=== PATIENT | female | born 1935 | race Caucasian/White ===

== ENCOUNTER 2017-03-06 19:39 | Inpatient (IN) | payer OTHER, MEDICARE ==
[2017-03-06] MEDS ORDERED: NS 500 ML IV ONE (19:42)
[2017-03-06 19:55] LABS: % IMMATURE GRANULYOCYTES 0.4 % (0.0-1.1); ABSOLUTE IMMATURE GRANULOCYTES 0.03 10^3/uL (0.00-0.10); ADD DIFF? NO; ADD MORPH? NO; ADD SCAN? NO; ATYPICAL LYMPHOCYTE FLAG 0 (0-99); FRAGMENT RBC FLAG 0 (0-99); HEMATOCRIT 39.5 % (38.0-47.0); HEMOGLOBIN 13.7 g/dL (12.6-16.3); LEFT SHIFT FLG 0 (0-99); LIPEMIA HEMOLYSIS FLAG 90 (0-99); MEAN CELL HEMOGLOBIN 32.9 pg (27.9-34.1); MEAN CELL HEMOGLOBIN CONCENTR. 34.7 g/dL (32.4-36.7); MEAN CELL VOLUME 94.7 fL (81.5-99.8); MEAN PLATELET VOLUME 9.6 fL (8.7-11.7); PLATELET CLUMPS FLAG 0 (0-99); PLATELET COUNT 265 10^3/uL (150-400); RED BLOOD CELL COUNT 4.17 10^6/uL (4.18-5.33); RED CELL DISTRIBUTION WIDTH 13.8 % (11.5-15.2)
--- NOTE | 2017-03-06 19:56 | EDPHY ---
H & P HPI/ROS: HPI Mechanical fall, facial injury, skin tears. 81-year-old female by ambulance from the [facility] living [facility]. She was walking down the hallway, tripped and fell landing on her right side and the right side of her face. She was wearing glasses. She sustained a laceration just above the right lateral maxilla. She also sustained several skin tears to the bilateral upper extremities. She was perseverating on scene according to EMS but this is improved in route to the emergency department. Patient denies headache. She does complain of pain where her lacerations and skin tears are. She denies neck pain. She denies any loss of sensation or weakness in her extremities. She is a diabetic. She is on Pradaxa. ROS: Constitutional: No fever, no chills. No weakness. Eyes: No discharge. No changes in vision. ENT: No sore throat. No nasal congestion or rhinorrhea. Respiratory: No cough. No shortness of breath. Cardiac: No chest pain, no palpitations. Gastrointestinal: No abdominal pain, no vomiting, no diarrhea. Genitourinary: No hematuria. No dysuria or increased frequency with urination. Musculoskeletal: No back pain. No neck pain. No myalgias or arthralgias. Skin: No rashes. As above. Neurological: No headache. No focal weakness or altered sensation. Past medical history: Diabetes, heart disease, atrial fibrillation with pacemaker. Heart bypass surgery with 6 grafts, transient ischemic attacks, chronic transaminitis, hypertension, lumbar surgery, hyperparathyroidism, osteoporosis. As above. Social history: Nonsmoker. No alcohol. As above. Physical Exam: General Appearance: Alert, no distress. She is in a cervical collar. This patient is responding to questions appropriately and in full sentences. This patient appears well-hydrated and well-nourished. Head: Normocephalic atraumatic except for a skin tear with associated laceration right lateral maxilla. Face: Facial bones are stable on palpation. Eyes: Pupils equal and round and reactive to light, no pallor or injection. No lid erythema or edema. ENT, Mouth: Mucous membranes moist. Dentition is intact. No malocclusion of the jaw. No tongue lacerations or abrasions. Pharynx is clear. The bilateral nasal canals are clear. No septal hematoma. Respiratory: There are no retractions, lungs are clear to auscultation with good air movement bilaterally. Chest wall is stable to AP and lateral palpation. Cardiovascular: Regular rate and rhythm. No murmur. Gastrointestinal: Abdomen is soft and nontender, no masses, bowel sounds normal. Neurological: Motor sensory function is intact. Cranial nerves are normal. Cerebellar function intact. Skin: Warm and dry, no rashes. She has several skin tears on her bilateral upper extremities, dorsal aspect forearms and arms. Specific locations include the right lateral elbow, right lateral distal wrist and over the 1st radial aspect metacarpal phalangeal joint at the base of her thumb. Musculoskeletal: Neck is supple mild right lateral paraspinal tenderness at C3 through C6. The trachea is midline. No midline cervical, thoracic, lumbar or sacral tenderness on palpation. No flank tenderness on palpation. Extremities are symmetrical, full range of motion. All joints in the bilateral upper and bilateral lower extremities range without pain or impingement. No tenderness on palpation of the long bones in the bilateral upper and bilateral lower extremities. Psychiatric: No agitation. No depression. Database: EKG: Imaging: Chest x-ray AP portable; the cardiac mediastinal silhouette is unremarkable. No evidence of infiltrate or pneumothorax. The bony elements appear unremarkable. Age-related changes only. Left upper chest wall pacemaker. Leads appear intact. No acute cardiopulmonary disease process noted. Interpreted by me. CT head without contrast: Maxillary sinus anterior wall fracture without significant displacement. No blowout fracture. Otherwise negative study. Results were discussed with staff radiologist Dr. Flo Alexis. CT cervical spine without contrast: Age-related changes only. No evidence of fracture, subluxation, dislocation. Results were discussed with staff radiologist Dr. Flo Alexis. Procedures: Procedure: Laceration repair. Verbal consent was obtained from the patient. The 2.5 cm laceration with skin tear on the right mid to lateral brow ridge was anesthetized in the usual fashion. The wound was irrigated, draped and explored to its base with a gloved finger. There were no deep structures involved. No form was identified. The wound was repaired with 6, 6.0 Prolene sutures placed in interrupted fashion. The wound repair was tolerated well and there were no complications. The procedure was performed by myself. Emergency department course: IV placed per EMS. Patient in a C-collar. After an initial primary survey, patient sent for CT imaging of the head and cervical spine. Vital signs reviewed. 8:15 p.m., results of CT scan reviewed with radiologist. Cervical collar cleared clinically and radiographically. Skin tear is managed by technicians in nurse's with emergency department skin tear protocol. 8:45 p.m., discussed results of blood work and CT scans with patient. Discussed need for admission. Plan will be to admit to the hospitalist service for observation and have trauma consult. 9:15 p.m., discussed case with hospitalist, patient accepted for admission by Dr. Johnson. Spoke with Dr. Chand, trauma surgeon, will consult on the patient for any further trauma management. Differential Diagnosis: The differential diagnosis on this patient includes but is not limited to skin tears to bilateral upper extremities, facial laceration, mechanical fall. This represents a partial list of diagnoses considered. These considerations are based on history, physical exam, past history, reassessment and diagnostic testing. Smoking Status: Never smoked Constitutional: Initial Vital Signs Temperature (C) 36.9 C 03/06/17 19:42 Heart Rate 81 03/06/17 19:42 Respiratory Rate 14 03/06/17 19:42 Blood Pressure 176/84 H 03/06/17 19:42 O2 Sat (%) 96 03/06/17 19:42 O2 Delivery Mode Room Air Allergies/Adverse Reactions: Tetanus Vaccines and Toxoid [Tetanus] Allergy (Severe, Verified 03/06/17 19:42) Hives codeine [Codeine] Allergy (Mild, Verified 03/06/17 19:42) Vomiting Home Medications: Medication Instructions Recorded Aspirin [Aspirin 81mg (OTC)] 81 mg PO DAILY 04/16/13 Furosemide [Lasix 20 MG (RX)] 40 mg PO DAILY 04/16/13 Insulin Glargine [Lantus 100 3 units SC HS 04/16/13 UNITS/ML (RX)] Insulin Glargine [Lantus 100 22 units SC DAILY@08 04/16/13 UNITS/ML (RX)] Insulin Lispro [humALOG LISPRO 100 4 - 10 unit SC TIDMEAL 04/16/13 units/ml (RX)] Nitroglycerin [Nitrostat 0.4 mg 0.4 mg SL DAILY PRN 04/16/13 (RX)] Ranolazine [RANEXA 500mg (RX)] 500 mg PO BID 04/16/13 Dabigatran Etexilate Mesyl 150 mg PO BID 04/25/13 [Pradaxa 150 MG (RX)] Simvastatin [Zocor 10 mg (RX)] 10 mg PO HS 04/25/13 Diltiazem Cd [Cardizem ER 120 MG 240 mg PO DAILY@09 05/29/13 (RX)] Diltiazem Cd [Cardizem ER 120 MG 120 mg PO HS 03/06/17 (*)] Docusate Sodium [Colace 100 MG (*)] 100 mg PO BID PRN 03/06/17 Herbals/Supplements -Info Only 1 ea PO DAILY 03/06/17 Lisinopril [Zestril 10 mg (*)] 10 mg PO DAILY 03/06/17 Omeprazole [Prilosec 20 mg] 20 mg PO DAILY 03/06/17 Medical Decision Making - Diagnostics Imaging Results: Imaging Impressions Cervical Spine CT 03/06/17 19:43 Impression: Stable noncontrast CT of the cervical spine, without acute fracture identified. Results called to Dr. Melo at the time of the examination.. Head CT 03/06/17 19:43 Impression: Stable noncontrast CT of the brain without acute abnormality noted. Right maxillary sinus fracture with blood in the sinus. Results called to Dr. Melo at the time of the interpretation. Chest X-Ray 03/06/17 19:45 Impression: Negative trauma chest. - Data Points Laboratory Results: Laboratory Results 03/06/17 19:48 03/06/17 19:48 03/06/17 03/06/17 03/06/17 20:07 19:48 19:48 WBC 7.08 10^3/uL 10^3/uL (3.80-9.50) RBC 4.17 10^6/uL L 10^6/uL (4.18-5.33) Hgb 13.7 g/dL g/dL (12.6-16.3) Hct 39.5 % % (38.0-47.0) MCV 94.7 fL fL (81.5-99.8) MCH 32.9 pg pg (27.9-34.1) MCHC 34.7 g/dL g/dL (32.4-36.7) RDW 13.8 % % (11.5-15.2) Plt Count 265 10^3/uL 10^3/uL (150-400) MPV 9.6 fL fL (8.7-11.7) Neut % (Auto) 52.2 % % (39.3-74.2) Lymph % (Auto) 28.8 % % (15.0-45.0) [place] % (Auto) 15.8 % H % (4.5-13.0) Eos % (Auto) 2.0 % % (0.6-7.6) Baso % (Auto) 0.8 % % (0.3-1.7) Nucleat RBC Rel Count 0.0 % % (0.0-0.2) Absolute Neuts (auto) 3.69 10^3/uL 10^3/uL (1.70-6.50) Absolute Lymphs (auto) 2.04 10^3/uL 10^3/uL (1.00-3.00) Absolute Monos (auto) 1.12 10^3/uL H 10^3/uL (0.30-0.80) Absolute Eos (auto) 0.14 10^3/uL 10^3/uL (0.03-0.40) Absolute Basos (auto) 0.06 10^3/uL 10^3/uL (0.02-0.10) Absolute Nucleated RBC 0.00 10^3/uL 10^3/uL (0-0.01) Immature Gran % 0.4 % % (0.0-1.1) Immature Gran # 0.03 10^3/uL 10^3/uL (0.00-0.10) PT 16.4 SEC H SEC (12.0-15.0) INR 1.32 H (0.83-1.16) APTT 27.7 SEC SEC (23.0-38.0) Sodium 127 mEq/L L mEq/L (134-144) Potassium 4.6 mEq/L mEq/L (3.5-5.2) Chloride 92 mEq/L L mEq/L (97-110) Carbon Dioxide 21 mEq/l L mEq/l (22-31) Anion Gap 14 mEq/L mEq/L (8-16) BUN 17 mg/dL mg/dL (7-23) Creatinine 0.9 mg/dL mg/dL (0.6-1.0) Estimated GFR 60 Glucose 311 mg/dL H mg/dL (70-100) Calcium 9.5 mg/dL mg/dL (8.5-10.4) Ethyl Alcohol 202 mg/dL H mg/dL (0-10) Medications Given: Discontinued Medications Sodium Chloride (Ns) 500 mls @ 0 mls/hr IV ONCE ONE; Wide Open PRN Reason: Protocol Stop: 03/06/17 19:43 Last Admin: 03/06/17 20:25 Dose: 500 mls Departure - Departure Disposition: [facility] Inpatient Acute Clinical Impression: Mechanical fall, Multiple skin tears, Facial laceration, Alcohol intoxication, Facial fracture Referrals: Patient,NotPresent [Unknown] - As per Instructions
[2017-03-06 20:13] LABS: ANION GAP 14 mEq/L (8-16); CALCIUM 9.5 mg/dL (8.5-10.4); CARBON DIOXIDE 21 mEq/l (22-31); CHLORIDE 92 mEq/L (97-110); CREATININE 0.9 mg/dL (0.6-1.0); ETHANOL SERUM 202 mg/dL (0-10); GLOMERULAR FILTRATION RATE 60; GLUCOSE 311 mg/dL (70-100); POTASSIUM 4.6 mEq/L (3.5-5.2); SODIUM 127 mEq/L (134-144)
[2017-03-06 20:20] LABS: INR 1.32 (0.83-1.16); PROTIME(PATIENT) 16.4 SEC (12.0-15.0)
[2017-03-06 20:21] LABS: APTT 27.7 SEC (23.0-38.0)
[2017-03-06] MEDS ORDERED: DOCUSATE SODIUM 100 MG CAP PO PRN (21:40)
[2017-03-06] MEDS ORDERED: ONDANSETRON 4 MG/2 ML VIAL IVP PRN (21:40)
[2017-03-06] MEDS ORDERED: NITROGLYCERIN 0.4 MG BTL SL PRN (21:40)
--- NOTE | 2017-03-06 22:04 | GHP ---
[f rep st] HISTORY AND PHYSICAL DATE OF ADMISSION: 03/06/2017 CHIEF COMPLAINT: Fall. HISTORY OF PRESENT ILLNESS: This is an 81-year-old female with history of atrial fibrillation, coronary artery disease, TIAs, hypertension, who resided at the [facility] and was brought to the emergency department by ambulance after she sustained a fall. During the time of my exam, the patient was unable to recall what happened. The history was obtained via ER report. Apparently, the patient was walking down the hallway when she tripped and fell and landed on her right side and her face. The patient was not able to tell me why she fell. She was not sure if she lost consciousness. Currently she denied any pain in her arms or legs. She denied headache. She denied any chest pain or palpitations. During her emergency department workup, she was found to have a blood alcohol level of 202. She said that she does drink wine per night but denies drinking more than usual today. PAST MEDICAL HISTORY: 1. Insulin-dependent diabetes mellitus. 2. Coronary artery disease with 6 vessel bypass. 3. Paroxysmal atrial fibrillation. 4. GERD. 5. Mitral regurgitation. 6. Hypertension. 7. Evaluation in the ER in 03/2016. HOME MEDICATIONS: Reviewed. Refer to [facility] for details. ALLERGIES: Codeine and tetanus vaccine. SOCIAL HISTORY: The patient resides at the [facility]. She drinks wine daily. She denies any illicit drug use. FAMILY HISTORY: Reviewed and noncontributory. REVIEW OF SYSTEMS: Comprehensive 10-point review of systems was done and was negative, except for as mentioned in the HPI. PHYSICAL EXAM: VITAL SIGNS: Blood pressure 176/84, pulse of 81, respiratory rate 14, O2 saturation 96% on room air. Temperature afebrile. GENERAL: In no acute distress. HEAD: Normocephalic. There is ecchymosis over the right eye. NECK: Supple. No lymphadenopathy. CARDIOVASCULAR: S1, S2. No JVD. No lower extremity edema. PULMONARY: Lungs are clear. No wheezes, rales, or rhonchi. ABDOMEN: Soft, nontender, and nondistended. No guarding or rebound tenderness. Normoactive bowel sounds. EXTREMITIES: No clubbing or cyanosis. NEURO: Cranial nerves 2-12 grossly intact. No focal motor or sensory deficits. SKIN: Clear. There are no rashes. Once again, there is bruising and abrasions over the face. DIAGNOSTICS: WBC 7, hemoglobin 13.7, hematocrit 39.5, platelets 265. INR 1.32 ; sodium 127, potassium 4.6, chloride 92, BUN 17, creatinine 0.9, glucose 311, ethyl alcohol 202. Chest x-ray: Negative for pneumonia. Head CT stable. Noncontrast CT of the brain, right maxillary sinus fracture. CT of the cervical spine was stable without an acute fracture. ASSESSMENT: This is an 81-year-old female, who reportedly fell at the [facility] , found to have: 1. Acute alcohol intoxication. 2. Right maxillary sinus fracture likely non operative. 3. History of insulin-dependent diabetes with hyperglycemia. 4. History of atrial fibrillation on Pradaxa. PLAN: 1. Place on observation. 2. Trauma Surgery consult. 3. Monitor for signs of bleeding. 4. Monitor blood sugars and treat with correctional insulin as indicated. 5. Send urine sodium and fluid restrict for now after giving 1 L normal saline. 6. We will hold the patient's home dose of Xarelto, given her recent trauma. Reconsider restarting blood thinners in the morning. 7. The patient requests to be full code status. /[id number]/MODL and [id number], 03/06/172141 [facility]
[2017-03-07] MEDS: ACETAMINOPHEN 325 MG TAB PO PRN ×4 (01:29→20:56)
[2017-03-07 05:08] LABS: % IMMATURE GRANULYOCYTES 0.5 % (0.0-1.1); ABSOLUTE IMMATURE GRANULOCYTES 0.04 10^3/uL (0.00-0.10); ADD DIFF? NO; ADD MORPH? NO; ADD SCAN? NO; ATYPICAL LYMPHOCYTE FLAG 0 (0-99); FRAGMENT RBC FLAG 0 (0-99); HEMATOCRIT 36.1 % (38.0-47.0); HEMOGLOBIN 12.3 g/dL (12.6-16.3); LEFT SHIFT FLG 0 (0-99); LIPEMIA HEMOLYSIS FLAG 90 (0-99); MEAN CELL HEMOGLOBIN 32.1 pg (27.9-34.1); MEAN CELL HEMOGLOBIN CONCENTR. 34.1 g/dL (32.4-36.7); MEAN CELL VOLUME 94.3 fL (81.5-99.8); MEAN PLATELET VOLUME 9.7 fL (8.7-11.7); PLATELET CLUMPS FLAG 0 (0-99); PLATELET COUNT 252 10^3/uL (150-400); RED BLOOD CELL COUNT 3.83 10^6/uL (4.18-5.33); RED CELL DISTRIBUTION WIDTH 13.9 % (11.5-15.2)
[2017-03-07 05:12] LABS: ANION GAP 8 mEq/L (8-16); CALCIUM 9.4 mg/dL (8.5-10.4); CARBON DIOXIDE 22 mEq/l (22-31); CHLORIDE 102 mEq/L (97-110); CREATININE 0.8 mg/dL (0.6-1.0); GLOMERULAR FILTRATION RATE > 60; GLUCOSE 246 mg/dL (70-100); POTASSIUM 4.5 mEq/L (3.5-5.2); SODIUM 132 mEq/L (134-144)
--- NOTE | 2017-03-07 07:16 | GCON ---
[f rep st] CONSULTATION This is an 81-year-old woman who presents to the hospital after a fall. The patient has a history o f atrial fibrillation, diabetes, coronary artery disease, GERD, mitral regurgitation, and hypertensi on. She was walking down the [place] after dinner. She fell on her face. She believes she tripped an d does not recall whether she lost consciousness. Patient admits to drinking 2 glasses of wine at d inner. Fall happened after dinner. The patient had a blood alcohol level of 202 on arrival to the emergency room. PAST MEDICAL HISTORY: Diabetes type 2, coronary artery disease, AFib, GERD, mitral regurgitation, h ypertension. PAST SURGICAL HISTORY: Includes 3 vessel bypass, abdominal surgery she does not recall. HOME MEDICATIONS: Reviewed, include Pradaxa. Refer to the medical record for full details. ALLERGIES: Include codeine and tetanus vaccine. SOCIAL HISTORY: Patient does drink daily. Denies smoking. FAMILY HISTORY: Noncontributory. REVIEW OF SYSTEMS: 10-point review of system was done, negative except for the pain that she has fr om landing on her face and abrasions she has on both arms. PHYSICAL EXAMINATION: VITAL SIGNS: Blood pressure 181/72, heart rate of 78, respiratory rate of 19 , saturating 99% on room air, temperature of 36.5. GENERAL: She is alert and oriented. HEENT: Carol chan has right facial ecchymoses with bruise under her right eye and no circumferential swelling, tende rness to maxillary sinus consistent with CT scan. Her bite is intact. HEART: She has irregular ir regular heart tones. LUNGS: Clear bilaterally. ABDOMEN: Soft, nontender to palpation. MUSCULOSK ELETAL: Moving all extremities. Good femoral and dorsalis pedis pulses bilaterally as well as radi al pulses bilaterally. 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 She has no CVA or back tenderne ss. SKIN: She has no rashes, but she has multiple abrasions. Her right eye brow has a laceration which has been sutured. She has an abrasion above that as well as bilateral upper extremities which are dressed. LABORATORY STUDIES: White count of 7.0, hemoglobin of 13.7, hematocrit of 39.5, platelet count of 2 65. PT is 16.4 with an INR of 1.32. Chemistry: Sodium 127, potassium 4.6, bicarb 21, chloride 92, BUN 17, creatinine 0.9, glucose is 311, calcium is 9.5. Normal chest x-ray, personally reviewed, discussed with Dr. Weiner. Head CT shows no intracrani al injury, no acute abnormality except the right maxillary sinus fracture with blood in the sinus. CT scan is negative except for degenerative changes. No acute fracture is identified. IMPRESSION: Fall from a standing height, trip and fall. The patient was drinking alcohol, does not need detox at this point. She remains on Pradaxa. I would hold this for the interim while she sti ll has ongoing bleeding. After 48 hours, she may resume this without a bolus. Diabetes control, ov erall risk management strategies for the patient will be discussed. No need for Trauma Surgery to je dorsey at this time. /[id number]/MODL
[2017-03-07] MEDS: RANOLAZINE 500 MG TAB.ER PO SCH ×2 (08:19→20:57)
[2017-03-07] MEDS: INSULIN GLARGINE 100 UNITS/ML SYRINGE SC SCH ×3 (08:21→20:58)
[2017-03-07] MEDS: DILTIAZEM CD 120 MG CAP PO SCH ×2 (08:21→20:57)
[2017-03-07] MEDS: PANTOPRAZOLE SODIUM 40 MG TAB PO SCH (08:21)
[2017-03-07] MEDS: ASPIRIN 81 MG CHEWABLE TAB PO SCH (08:21)
[2017-03-07] MEDS: INSULIN LISPRO 100 UNIT/ML SC SCH ×3 (08:27→18:09)
[2017-03-07] MEDS ORDERED: LISINOPRIL 10 MG TAB PO SCH (09:00)
[2017-03-07] MEDS ORDERED: Herbals/Supplements -Info Only PO SCH (09:00)
[2017-03-07] MEDS ORDERED: NON-FORMULARY NEW DRUG (Omeprazole [Prilosec 20 Mg] 20 MG) PO SCH (09:00)
--- NOTE | 2017-03-07 09:26 | HOSPPROG ---
Hospitalist Progress Note Assessment/Plan: Patient is an 81-year-old female with history of atrial fibrillation, coronary artery disease who was brought to the emergency room after she sustained a fall. She was walking down the hallway when she tripped and landed on her right side and her face. Today is my 1st encounter with the patient. Chart reviewed. * mechanical fall due to tripping reviewed surgeries input. Recommending holding Pradaxa for the next [address] is stable except for a right maxillary sinus fracture CT of the cervical spine was stable without acute fracture Patient has multiple abrasions on her face * alcohol use Likely impacting the above Blood alcohol level was 202 on admission Per nursing staff she drinks 4 glasses of wine per night * diabetes type 2. Insulin dependent *Hyponatremia improved with a L of normal saline * hypertension Home meds given this morning If remains elevated will further address * plan. Will wait for physical therapy and occupational therapy to evaluate Subjective: Mary is complaining of some overall aches and pains from her fall Objective: Vital Signs Temp Pulse Resp BP Pulse Ox 36.9 C 80 14 179/69 H 96 03/07/17 08:00 03/07/17 08:21 03/07/17 08:00 03/07/17 08:21 03/07/17 08:00 Laboratory Results 03/07/17 04:39 03/07/17 04:39 03/06/17 03/07/17 03/08/17 05:59 05:59 05:59 Intake Total 600 Output Total 500 200 Balance 100 -200 PT 16.4 SEC (12.0-15.0) H 03/06/17 20:07 INR 1.32 (0.83-1.16) H 03/06/17 20:07 - Physical Exam Constitutional: uncomfortable Eyes: PERRL, other (Ecchymosis around the right eye area some bruising above the right eye.) Ears, Nose, Mouth, Throat: hearing normal Cardiovascular: regular rate and rhythym, tachycardia Respiratory: no respiratory distress, reduced air movement Gastrointestinal: normoactive bowel sounds Skin: other (Bruises and abrasions mainly on the right side of her face) Musculoskeletal: generalized weakness Neurologic: AAOx3 Psychiatric: interacting appropriately, not anxious ICD10 Worksheet Patient Problems: Problems Problem Status Onset Facial fracture Acute Facial laceration Acute Multiple skin tears Acute Chest pain Active History of - hypertension Active Insulin-treated [id number] diabetes mellitus Active
[2017-03-07] MEDS: hydrALAZINE 10 MG TAB PO PRN (12:37)
[2017-03-07] MEDS: RED WINE 120 ML BOTTLE PO SCH (18:09)
[2017-03-07] MEDS ORDERED: traMADol 50 MG TAB PO ONE (18:45)
[2017-03-07] MEDS: PRAVASTATIN SODIUM 20 MG TAB PO SCH (20:57)
[2017-03-07] MEDS ORDERED: NON-FORMULARY NEW DRUG (Simvastatin [Zocor 10 Mg] 10 MG) PO SCH (21:00)
[2017-03-08 05:09] LABS: % IMMATURE GRANULYOCYTES 0.2 % (0.0-1.1); ABSOLUTE IMMATURE GRANULOCYTES 0.01 10^3/uL (0.00-0.10); ADD DIFF? NO; ADD MORPH? NO; ADD SCAN? NO; ATYPICAL LYMPHOCYTE FLAG 10 (0-99); FRAGMENT RBC FLAG 0 (0-99); HEMATOCRIT 35.5 % (38.0-47.0); LEFT SHIFT FLG 0 (0-99); LIPEMIA HEMOLYSIS FLAG 90 (0-99); MEAN CELL HEMOGLOBIN 32.2 pg (27.9-34.1); MEAN CELL HEMOGLOBIN CONCENTR. 33.8 g/dL (32.4-36.7); MEAN CELL VOLUME 95.2 fL (81.5-99.8); MEAN PLATELET VOLUME 9.4 fL (8.7-11.7); PLATELET CLUMPS FLAG 0 (0-99); PLATELET COUNT 210 10^3/uL (150-400); RED BLOOD CELL COUNT 3.73 10^6/uL (4.18-5.33); RED CELL DISTRIBUTION WIDTH 13.9 % (11.5-15.2)
[2017-03-08 05:22] LABS: ANION GAP 6 mEq/L (8-16); CALCIUM 9.2 mg/dL (8.5-10.4); CARBON DIOXIDE 23 mEq/l (22-31); CHLORIDE 102 mEq/L (97-110); CREATININE 0.7 mg/dL (0.6-1.0); GLOMERULAR FILTRATION RATE > 60; GLUCOSE 221 mg/dL (70-100); POTASSIUM 4.3 mEq/L (3.5-5.2); SODIUM 131 mEq/L (134-144)
[2017-03-08] MEDS: ACETAMINOPHEN 325 MG TAB PO PRN ×3 (05:46→12:27)
[2017-03-08] MEDS: INSULIN GLARGINE 100 UNITS/ML SYRINGE SC SCH ×2 (08:18→20:53)
[2017-03-08] MEDS: DILTIAZEM CD 120 MG CAP PO SCH ×2 (08:19→21:02)
[2017-03-08] MEDS: LISINOPRIL 10 MG TAB PO SCH (08:20)
[2017-03-08] MEDS: PANTOPRAZOLE SODIUM 40 MG TAB PO SCH (08:20)
[2017-03-08] MEDS: ASPIRIN 81 MG CHEWABLE TAB PO SCH (08:20)
[2017-03-08] MEDS: INSULIN LISPRO 100 UNIT/ML SC SCH ×3 (08:26→18:24)
[2017-03-08] MEDS: RANOLAZINE 500 MG TAB.ER PO SCH ×2 (08:28→21:01)
--- NOTE | 2017-03-08 10:17 | HOSPPROG ---
Hospitalist Progress Note Assessment/Plan: Patient is an 81-year-old female with history of atrial fibrillation, coronary artery disease who was brought to the emergency room after she sustained a fall. She was walking down the hallway when she tripped and landed on her right side and her face. * mechanical fall due to tripping reviewed surgeries input. Recommending holding Pradaxa for the next [address] is stable except for a right maxillary sinus fracture CT of the cervical spine was stable without acute fracture Patient has multiple abrasions on her face PT cleared her for home, awaiting ST to evaluate since she hit her head in further talking with Mary, she has no recollection/ will talk w cards about pacer/ poss interrogated recently will get an echo if one hasn't been done *syncopal event will get an echo has hx of bypass surgery could of been caused by dehydration *right maxillary sinus fx had some blood in the sinus no c/o headache or sinus pain * Intermittent afib per patient noted when pacer was evaluated * alcohol use Likely impacting the above/ she is going to decrease wine intake to one glass nightly Blood alcohol level was 202 on admission Per nursing staff she drinks 4 glasses of wine per night ordered a glass of wine w dinner * diabetes type 2. Insulin dependent *Hyponatremia overall stable * hypertension Home meds given this morning increased her lisinopril dose * plan. spoke w cardiology and they are going to lmk about the pacer and if she has had a recent echo/poss dc later today/ awaiting for ST to see Subjective: Mary has no complaints/ wants to go home. Objective: Vital Signs Temp Pulse Resp BP Pulse Ox 36.6 C 68 20 171/68 H 94 03/08/17 07:49 03/08/17 07:49 03/08/17 07:49 03/08/17 07:49 03/08/17 07:49 Laboratory Results 03/08/17 04:45 03/08/17 04:45 03/07/17 03/08/17 03/09/17 05:59 05:59 05:59 Intake Total 900 Output Total 1800 Balance -900 PT 16.4 SEC (12.0-15.0) H 03/06/17 20:07 INR 1.32 (0.83-1.16) H 03/06/17 20:07 - Physical Exam Constitutional: no apparent distress, appears nourished, not in pain Eyes: PERRL Ears, Nose, Mouth, Throat: hearing normal Cardiovascular: regular rate and rhythym, no murmur, rub, or gallop Respiratory: no respiratory distress Gastrointestinal: normoactive bowel sounds Skin: warm, normal color, other (abrasions on right side of face/ lac above r eyebrow area/ sutured / had dried blood on it) Musculoskeletal: full muscle strength Neurologic: AAOx3 Psychiatric: interacting appropriately, not anxious, not encephalopathic ICD10 Worksheet Patient Problems: Problems Problem Status Onset Facial fracture Acute Facial laceration Acute Multiple skin tears Acute Chest pain Active History of - hypertension Active Insulin-treated [id number] diabetes mellitus Active
--- NOTE | 2017-03-08 13:35 | ECHO ---
[id number] + + [address] : : [place] [address] : : [phone] + + Adult Echocardiographic Report + + :Name: MARY JALLOH RStudy Date: 03/08/2017 11:45 AM : : Hospital Admission Number: [id number] : :: 1935 Gender: Female Height: 60 in : :Age: 81 yrs Race: WH Weight: 110 lb : :Reason For Study: Syncopal event : : BSA: 1.4 meters2: :History: Pacer/breast surgery : + + MMode/2D Measurements \T\ Calculations LVIDd: 3.3 cm EDV(Teich): Ao root diam: LVLd ap4: 6.7 cm 43.6 ml 3.2 cm EDV(MOD-sp4): LA dimension: 39.0 ml 3.5 cm LVLs ap4: 5.5 cm ESV(MOD-sp4): 13.0 ml EF(MOD-sp4): 66.7 % [place] [place] 26.0 ml Normal Measurement Values: + + :LVIDd (3.5-5.7cm) IVSd (0.6-1.1cm) LVPWd (0.6-1.1cm) Aortic Root (2.0-3.7cm)Left Atrium (1.5-4.0cm): :LV Vol(d) (76-115ml) LV Vol(s) (29-48ml) Ejec Fraction (50-65%)PV Evens (0.6- 1.2m/s) TV Evens (0.4-1.0m/s) : :MV E Evens (0.8-1.0m/s)MV A Evens (0.3-1.0m/s)LVOT Evens (0.7-1.2m/s) Asc Ao Evens ( 0.9-1.8m/s) : + + Doppler Measurements \T\ Calculations MV E max evens: 52.1 cm/sec Ao V2 max: 116.1 cm/sec TR max evens: 221.3 cm/sec MV A max evens: 120.6 cm/sec Ao max P.4 mmHg TR max P.6 mmHg MV E/A: 0.43 RAP systole: 5.0 mmHg RVSP(TR): 24.6 mmHg Left Ventricle The left ventricle is normal in size. There is moderate concentric left ventricular hypertrophy. Left ventricular systolic function is normal. E/a wave reversal. Ejection Fraction = 70-75%. No regional wall motion abnormalities noted. Right Ventricle The right ventricle is normal in size and function. There is a pacemaker lead in the right ventricle. Atria The left atrial size is normal. Right atrial size is normal. The interatrial septum is intact with no evidence for an atrial septal defect. Mitral Valve The mitral valve is normal in structure and function. There is no evidence of mitral valve prolapse. There is no mitral valve stenosis. There is mild mitral regurgitation. Tricuspid Valve Normal tricuspid valve. There is mild tricuspid regurgitation. Right ventricular systolic pressure is normal. Aortic Valve The aortic valve opens well. There is no aortic stenosis. Trace to mild aortic regurgitation. Pulmonic Valve The pulmonic valve is not well visualized. There is no pulmonic valvular regurgitation. Great Vessels The aortic root is normal size. Pericardium/Pleural There is no pericardial effusion. Conclusion A complete two-dimensional transthoracic echocardiogram was performed (2D, M-mode, Doppler and color flow Doppler). The study was technically difficult. Left ventricular systolic function is normal. There is moderate concentric left ventricular hypertrophy. E/a wave reversal. Ejection Fraction = 70-75%. There is a pacemaker lead in the right ventricle. There is mild mitral regurgitation. There is mild tricuspid regurgitation. Right ventricular systolic pressure is normal. Trace to mild aortic regurgitation. Final Reading Physician: Dee Heredia signed on 03/08/2017 01:34 PM Ordering Physician: Delphine Booth Performed By: Kassandra Moraes RDCS
[2017-03-08] MEDS: RED WINE 120 ML BOTTLE PO SCH (18:28)
[2017-03-08] MEDS: PRAVASTATIN SODIUM 20 MG TAB PO SCH (21:01)
[2017-03-09] MEDS: INSULIN LISPRO 100 UNIT/ML SC SCH ×3 (07:56→17:46)
[2017-03-09] MEDS: INSULIN GLARGINE 100 UNITS/ML SYRINGE SC SCH ×2 (07:56→21:41)
[2017-03-09] MEDS: LISINOPRIL 10 MG TAB PO SCH (08:33)
[2017-03-09] MEDS: ACETAMINOPHEN 325 MG TAB PO PRN ×2 (08:33→23:00)
[2017-03-09] MEDS: RANOLAZINE 500 MG TAB.ER PO SCH ×2 (08:34→20:19)
[2017-03-09] MEDS: PANTOPRAZOLE SODIUM 40 MG TAB PO SCH (08:34)
[2017-03-09] MEDS: DILTIAZEM CD 120 MG CAP PO SCH ×2 (08:34→20:19)
[2017-03-09] MEDS: ASPIRIN 81 MG CHEWABLE TAB PO SCH (08:34)
--- NOTE | 2017-03-09 14:54 | HOSPPROG ---
Hospitalist Progress Note Assessment/Plan: Patient is an 81-year-old female with history of atrial fibrillation, coronary artery disease who was brought to the emergency room after she sustained a fall. She was walking down the hallway when she tripped and landed on her right side and her face. This is my first encounter with this pt. Chart reviewed. * mechanical fall due to tripping Held Pradaxa for 48 hours, restarted Head CT is stable except for a right maxillary sinus fracture CT of the cervical spine was stable without acute fracture Patient has multiple abrasions on her face Rec SNF rehab in further talking with Mary, she has no recollection echo stable, pacer stable *syncopal event echo stable has hx of bypass surgery could of been caused by dehydration *right maxillary sinus fx had some blood in the sinus no c/o headache or sinus pain * Intermittent afib per patient noted when pacer was evaluated * alcohol use Likely impacting the above/ she is going to decrease wine intake to one glass nightly Blood alcohol level was 202 on admission Per nursing staff she drinks 4 glasses of wine per night ordered a glass of wine w dinner * diabetes type 2. Insulin dependent *Hyponatremia overall stable * hypertension Home meds given increased her lisinopril dose restart lasix * plan. Doing well Plan for DC to SNF in am if stable. Subjective: Feeling well. Still weak with some shoulder pain. Objective: Vital Signs Temp Pulse Resp BP Pulse Ox 36.8 C 69 18 179/77 H 98 03/09/17 07:20 03/09/17 08:34 03/09/17 07:20 03/09/17 08:34 03/09/17 07:20 Laboratory Results 03/08/17 04:45 03/08/17 04:45 03/08/17 03/09/17 03/10/17 05:59 05:59 05:59 Intake Total 900 800 300 Output Total 1800 Balance -900 800 300 PT 16.4 SEC (12.0-15.0) H 03/06/17 20:07 INR 1.32 (0.83-1.16) H 03/06/17 20:07 - Physical Exam Constitutional: appears nourished, not in pain, chronically ill appearing Eyes: PERRL, anicteric sclera, EOMI Ears, Nose, Mouth, Throat: moist mucous membranes, hearing normal, ears appear normal Cardiovascular: No JVD, No tachycardia, No edema Respiratory: no respiratory distress, no rales or rhonchi, reduced air movement Gastrointestinal: No tenderness, No ascites, No guarding Skin: warm, abrasion, No mottled Musculoskeletal: pain with ROM, muscular tenderness, generalized weakness Neurologic: AAOx3 Psychiatric: interacting appropriately, not anxious, not encephalopathic ICD10 Worksheet Patient Problems: Problems Problem Status Onset Chest pain Active History of - hypertension Active Insulin-treated [id number] diabetes mellitus Active Multiple skin tears Acute Facial laceration Acute Facial fracture Acute
[2017-03-09] MEDS: RED WINE 120 ML BOTTLE PO SCH (17:48)
[2017-03-09] MEDS: hydrALAZINE 10 MG TAB PO PRN (18:57)
[2017-03-09] MEDS: PRAVASTATIN SODIUM 20 MG TAB PO SCH (20:20)
[2017-03-09] MEDS: DABIGATRAN ETEXILATE MESYL 150 MG CAP PO SCH (20:20)
[2017-03-10] MEDS: ACETAMINOPHEN 325 MG TAB PO PRN (04:56)
[2017-03-10 07:35] VITALS: BP 158/71; PULSE 71; RESP 18; TEMP 98; O2SAT 95
[2017-03-10] MEDS: INSULIN LISPRO 100 UNIT/ML SC SCH ×2 (08:28→11:38)
[2017-03-10] MEDS: INSULIN GLARGINE 100 UNITS/ML SYRINGE SC SCH (08:29)
[2017-03-10] MEDS: DABIGATRAN ETEXILATE MESYL 150 MG CAP PO SCH (08:29)
[2017-03-10] MEDS: RANOLAZINE 500 MG TAB.ER PO SCH (08:29)
[2017-03-10] MEDS: DILTIAZEM CD 120 MG CAP PO SCH (08:30)
[2017-03-10] MEDS: LISINOPRIL 10 MG TAB PO SCH (08:30)
[2017-03-10] MEDS: PANTOPRAZOLE SODIUM 40 MG TAB PO SCH (08:30)
[2017-03-10] MEDS ORDERED: FUROSEMIDE 20 MG TAB PO SCH (09:00)
[2017-03-10] MEDS: ASPIRIN 81 MG CHEWABLE TAB PO SCH (10:22)
--- NOTE | 2017-03-10 11:22 | PDIAF ---
- Diagnosis Diagnosis: FALL Code Status: Full Code - Medication Management Discharge Medications: Medications to Continue on Transfer Aspirin [Aspirin 81mg (*)] 81 mg PO DAILY 04/16/13 [Last Taken 05/27/13] Furosemide [Lasix 20 MG (*)] 40 mg PO DAILY 04/16/13 [Last Taken 05/28/13] Insulin Glargine [Lantus 100 UNITS/ML (*)] 3 units SC HS 04/16/13 [Last Taken ] Insulin Glargine [Lantus 100 UNITS/ML (*)] 22 units SC DAILY@04/16/13 [Last Taken 05/28/13] Insulin Lispro [humALOG LISPRO 100 units/ml (*)] 4 - 10 unit SC TIDMEAL [Last Taken 05/28/13] Nitroglycerin [Nitrostat 0.4 mg (*)] 0.4 mg SL DAILY PRN 04/16/13 [Last Taken ] Ranolazine [Ranexa] 500 mg PO BID 04/16/13 [Last Taken 05/29/13 06:00] Dabigatran Etexilate Mesyl [Pradaxa 150 MG (*)] 150 mg PO BID 04/25/13 [Last Taken 05/27/13] Simvastatin [Zocor 10 mg] 10 mg PO HS 04/25/13 [Last Taken 05/28/13] Diltiazem Cd [Cardizem ER 120 MG (*)] 240 mg PO DAILY@05/29/13 [Last Taken ] Diltiazem Cd [Cardizem ER 120 MG (*)] 120 mg PO HS 03/06/17 [Last Taken 03/05/17 ] Docusate Sodium [Colace 100 MG (*)] 100 mg PO BID PRN 03/06/17 [Last Taken Unknown] Herbals/Supplements -Info Only 1 ea PO DAILY 03/06/17 [Last Taken Unknown] Lisinopril [Zestril 10 mg (*)] 10 mg PO DAILY 03/06/17 [Last Taken Unknown] Omeprazole [Prilosec 20 mg] 20 mg PO DAILY 03/06/17 [Last Taken Unknown] Acetaminophen [Tylenol 325mg (*)] 650 mg PO Q6 PRN #0 tab 06/23/17 [Last Taken Unknown] Red Wine 120 ml PO DAILY AT 6PM bottle 03/10/17 [Last Taken Unknown] Discharge Medications: Refer to the Discharge Home Medication list for PRN reason. PICC Care - Routine: N/A - Orders Services needed: Registered Nurse, Physical Therapy, Occupational Therapy Diet Recommendation: ADA 2000 consistent carb - Follow Up Care Current Providers and Referrals: Patient,NotPresent [Unknown] - As per Instructions
--- NOTE | 2017-03-10 15:12 | GDS ---
[f rep st] DISCHARGE SUMMARY DISCHARGE DIAGNOSES: 1. Mechanical fall. 2. Multiple syncopal episodes. 3. Right maxillary sinus fracture. 4. Intermittent atrial fibrillation. 5. Daily alcohol use. 6. Diabetes mellitus type 2. 7. Hyponatremia. 8. Hypertension. PHYSICAL EXAM: GENERAL: The patient is alert. VITAL SIGNS: Afebrile at 36.7. Pulse is 71. Resp iratory rate is 18. Blood pressure is 158/71. She is saturating 95% on room air. I have seen and evaluated the patient on the day of discharge. HOSPITAL COURSE: The patient is an 81-year-old female who presented to the hospital with complaints of a fall. She was evaluated and diagnosed with: 1. Mechanical fall. This occurred during the patient's ambulation and she tripped. She has been e valuated and it is recommended that she have nursing home facility rehabilitation. 2. Syncopal episode. An echocardiogram was performed. This is stable. Likely cause is secondary to dehydration. 3. Right maxillary sinus fracture. This appears to be stable. Follow up in the outpatient setting as recommended. 4. Intermittent atrial fibrillation. The patient does have a history of a pacemaker. No other int ervention is warranted. Her pacemaker was interrogated during this hospital course and appears to b e working appropriately. 5. Daily alcohol use. The patient has been instructed to decrease her wine consumption. Will cont inue 1 glass of wine daily. 6. Diabetes mellitus type 2. We will continue previously prescribed insulin regimen. 7. Hyponatremia. This is secondary to dehydration, improved. 8. Hypertension. Home medications have been initiated. Her lisinopril dose has been increased, an d her Lasix has been reinitiated. DISPOSITION: The patient will be discharged to a nursing home facility for further physical therapy resident apy and occupational therapy and strengthening. She will follow up with her primary care physician regarding her hypertension, and medication regimen is to be considered that the patient would benefi t from a decrease in Lasix and a potential increase in other antihypertensive medications given her level of dehydration and daily alcohol consumption. I spent greater than 35 minutes in the care, coordination, and management of this patient's discharg e. /[id number]/MODL
== END 2017-03-10 14:10 | DRG 158 ==
LOC: EDUNIT# → F3N 22:25 → OBSVTOIN 03-07 14:01
PROVIDERS: ADMIT Family Medicine; ATTEND Family Medicine
PROC: 0HQ1XZZ Repair Face Skin, External Approach (ICD-10-PCS; principal; 2017-03-07)
DX: S02.40CA Maxillary fracture, right side, initial encounter for closed fracture (principal); S01.81XA Laceration without foreign body of other part of head, initial encounter; E87.1 Hypo-osmolality and hyponatremia; R55 Syncope and collapse; I48.0 Paroxysmal atrial fibrillation; F10.129 Alcohol abuse with intoxication, unspecified; I25.10 Atherosclerotic heart disease of native coronary artery without angina pectoris; E11.9 Type 2 diabetes mellitus without complications; I10 Essential (primary) hypertension; W01.0XXA Fall on same level from slipping, tripping and stumbling without subsequent striking against object, initial encounter; Y92.198 Other place in other specified residential institution as the place of occurrence of the external cause; Z95.0 Presence of cardiac pacemaker; Z95.1 Presence of aortocoronary bypass graft; Z79.4 Long term (current) use of insulin; Z79.01 Long term (current) use of anticoagulants
CPT/HCPCS: 92507-GN; 92523-GN; 97161-GP; 97166-GO; 97535-GO; G0378; G0390; G0480; G8978-GP-CI; G8979-GP-CI; G8980-GP-CI; G8987-GO-CI; G8988-GO-CI; G9168-GN-CK; G9169-GN-CJ; J1815

== ENCOUNTER 2017-10-25 19:27 | Emergency (ER) | payer OTHER, MEDICARE ==
[2017-10-25 19:35] VITALS: TEMP 97.9
[2017-10-25 19:43] LABS: PLATELET COUNT 275 10^3/uL (150-400)
--- NOTE | 2017-10-25 19:45 | CPEKG ---
Heart Rate: 69 RR Interval: 870 P-R Interval: 212 QRSD Interval: 132 QT Interval: 480 QTC Interval: 515 P [place]: 13 QRS [place]: 54 T Wave [place]: 32 EKG Severity - ABNORMAL ECG - EKG Impression: SINUS RHYTHM EKG Impression: LEFT ATRIAL ABNORMALITY EKG Impression: RIGHT BUNDLE BRANCH BLOCK Electronically Signed By: Yannick Castillo 26-Oct-2017 05:29:09
--- NOTE | 2017-10-25 19:49 | EDPHY ---
H & P Stated Complaint: trip and fall-+pradxaxa and cardiac hx Time Seen by Provider: 10/25/17 19:47 HPI/ROS: HPI: This 82-year-old female who presents with Chief Complaint: trip and fall-+pradxaxa and cardiac hx Location: Body Quality: Tripped Duration: Prior to arrival Signs and Symptoms: No bleeding, no radiation, no numbness, no weakness, no tingling, no incontinence, no decreased range of motion, no swelling, no pain Timing: Acute Severity: Mild Context: Patient is a resident of assisted living [facility], [facility], who presents via EMS after she tripped and fell and did not remember the incident. Patient reports that it is her birthday and she has been drinking wine this evening over dinner. She currently has no complaints and is demanding to be discharged home. Spoke with daughter, power of vat tender on the phone, who reports mom a sounds like she is at baseline. Denies LOC/ headache/neck pain/abdominal pain/nausea/vomiting/weakness/radiation. Modifying Factors: None Comment: ROS: see HPI Constitutional: No fever, no chills, no weight loss Eyes: No blurred vision Respiratory: No shortness of breath, no cough Cardiovascular: No chest pain Gastrointestinal: No nausea, no vomiting no diarrhea Genitourinary: No dysuria Extremities: No myalgias Neurologic: No weakness, no numbness Skin: No rashes Hematologic: No bruising, no bleeding MEDICAL/SURGICAL/SOCIAL HISTORY: Medical history: Diabetes, atrial fibrillation on anticoagulation, TIA, chronic elevated liver enzymes, hypertension, hyperparathyroid, osteoporosis Surgical history: Pacemaker, CABG x6, lumbar surgery Social history: Lives at [facility] CONSTITUTIONAL: Elderly, intoxicated, white female, talkative and polite, awake and alert, no obvious distress HEENT: Atraumatic and normocephalic, PERRL, EOMI. no globe entrapment, no raccoon eyes. no Sanchez signs.Tympanic membranes clear. No tympanic membrane rupture. Nares patent; no septal hematoma. Oropharynx clear, no exudate and moist pink mucosa. No malocclusion. no dental trauma. Airway patent. No lymphadenopathy. NECK: supple, no midline tenderness, flexion 45 degrees, extension 45 degrees, right and left lateral flexion 45 degrees. No meningismus. Cardiovascular: Normal S1/S2, regular rate, regular rhythm, without murmur rub or gallop. PULMONARY/CHEST: Symmetrical and nontender. no crepitus. Clear to auscultation bilaterally. Good air movement. No accessory muscle usage. ABDOMEN: Soft, nondistended, nontender, no ecchymosis, no rebound, no guarding , no peritoneal signs, no masses or organomegaly. No CVAT. PELVIC: no pain with rocking; bilateral hips flexion 125 degrees, extension 30 degrees, with no pain internal rotation and no pain external rotation. BACK: No midline tenderness, no paraspinous spasm, deep tendon reflexes 2/2, no pain with straight leg raise EXTREMITIES: 2/2 pulses, no deformities, no clubbing, no cyanosis or edema. NEUROLOGICAL: no focal neuro deficits. GCS 15. SKIN: Warm and dry, no erythema. no rash. Good capillary refill. Source: Patient, Family (Daughter), [facility] records Exam Limitations: Intoxication - Personal History Tetanus Vaccine Date: has allergy to to tetnus - Medical/Surgical History Hx Asthma: No Hx Chronic Respiratory Disease: No Hx Diabetes: Yes Hx Cardiac Disease: Yes Hx Renal Disease: No Hx Cirrhosis: No Hx Alcoholism: No Hx HIV/AIDS: No Hx Splenectomy or Spleen Trauma: No Other PMH: dm, atrial fib, pacemaker, bipass x 6 grafts, TIA, chronic elevated liver enxzymes, HTN, lumbar sx, hyper parathyroid. - Social History Smoking Status: Never smoked Constitutional: Initial Vital Signs Temperature (C) 36.6 C 10/25/17 19:31 Heart Rate 65 10/25/17 19:31 Respiratory Rate 16 10/25/17 19:31 Blood Pressure 161/71 H 18 19:31 O2 Sat (%) 98 10/25/17 19:31 O2 Delivery Mode Room Air Allergies/Adverse Reactions: Tetanus Vaccines and Toxoid [Tetanus] Allergy (Severe, Verified 10/25/17 19:31) Hives codeine [Codeine] Allergy (Mild, Verified 10/25/17 19:31) Vomiting Home Medications: Medication Instructions Recorded Aspirin [Aspirin 81mg (*)] 81 mg PO DAILY 04/16/13 Furosemide [Lasix 20 MG (*)] 40 mg PO DAILY 04/16/13 Insulin Glargine [Lantus 100 3 units SC HS 07/30/13 UNITS/ML (*)] Insulin Glargine [Lantus 100 22 units SC DAILY@08 04/16/13 UNITS/ML (*)] Insulin Lispro [humALOG LISPRO 100 4 - 10 unit SC TIDMEAL 04/16/13 units/ml (*)] Nitroglycerin [Nitrostat 0.4 mg 0.4 mg SL DAILY PRN 04/16/13 (*)] Ranolazine [Ranexa] 500 mg PO BID 04/16/13 Dabigatran Etexilate Mesyl 150 mg PO BID 04/25/13 [Pradaxa 150 MG (*)] Simvastatin [Zocor 10 mg] 10 mg PO HS 04/25/13 Diltiazem Cd [Cardizem ER 120 MG 240 mg PO DAILY@05/29/13 (*)] Diltiazem Cd [Cardizem ER 120 MG 120 mg PO HS 03/06/17 (*)] Docusate Sodium [Colace 100 MG (*)] 100 mg PO BID PRN 03/06/17 Herbals/Supplements -Info Only 1 ea PO DAILY 03/06/17 Lisinopril [Zestril 10 mg (*)] 10 mg PO DAILY 03/06/17 Omeprazole [Prilosec 20 mg] 20 mg PO DAILY 03/06/17 Acetaminophen [Tylenol 325mg (*)] 650 mg PO Q6 PRN #0 tab 03/10/17 Red Wine 120 ml PO DAILY AT 6PM bottle 03/10/17 Medical Decision Making - Diagnostics EKG Interpretation: 12 lead EKG: Indication: Fall Rhythm: Normal sinus rhythm, rate 69 beats per minute [place]: Normal Intervals: Normal QRS: Right bundle-branch block ST segments: Nonspecific INTERPRETATION: No acute ischemic changes The 12 lead EKG was interpreted by myself. Imaging Results: Imaging Impressions Cervical Spine CT 10/25/17 19:37 Impression: 1. No definite acute fracture. 2. Old mild compression fracture of T1, stable since the previous studies. 3. Degenerative cervical spondylosis at C5-C6 and C6-C7 resulting in mild to moderate central canal stenosis and neural foraminal stenosis. 4. If there is persistent pain or neurological deficit, recommend MR cervical spine and consider flexion and extension views, if clinically indicated. Findings and recommendations discussed with Emergency Department Physician Kitchen Stewardess, Jasmina Olvera PA-C, at 2 hours, on October 25, 2017. Final report concurs with initial preliminary interpretation. Head CT 10/25/17 19:37 Impression: 1. Moderate atrophy. 2. No acute hemorrhage, hydrocephalus, or mass effect. 3. Cerebrovascular atherosclerosis. 4. No definite acute infarct. 5. Moderate microvascular ischemic gliosis. 6. No epidural or subdural hematoma. Findings and recommendations discussed with Emergency Department physician, Jasmina Olvera PA-C, at 2 hours, on October 25, 2017. Final report concurs with initial preliminary interpretation. ED Course/Re-evaluation: Head CT imaging ordered based on Parks guidelines of age being greater than 65 and on blood thinners Cervical CT imaging ordered due to age greater than 65 years and unknown mechanism. Fall appears to be accidental in nature and secondary to balance deficits related to intoxication. Called by Radiology who advised Head CT scan shows no acute intracranial abnormality and Cervical CT scan shows no acute fracture; old T1 compression fracture as compared to prior studies per Radiology; moderate degenerative disc disease. Labs reviewed; no signs anemia/leukocytosis/acute kidney injury/electrolyte imbalance/acute coronary syndrome/CVA Ethanol level is 211 3 hours later; Reassessed patient who reports that she has no pain. She wants to be discharged as it is her birthday. She is alert and oriented x4. Ambulatory without assistance. This patient was seen under the supervision of my secondary supervising physician. I evaluated care for this patient independently. Differential Diagnosis: Head injury including but not limited to concussion, skull fracture, intraparenchymal contusion, subarachnoid, subdural and epidural hematoma. - Data Points Laboratory Results: Laboratory Results 10/25/17 19:30 10/25/17 19:30 10/25/17 10/25/17 10/25/17 19:30 19:30 19:30 WBC RBC Hgb Hct MCV MCH MCHC RDW Plt Count MPV Neut % (Auto) Lymph % (Auto) [place] % (Auto) Eos % (Auto) Baso % (Auto) Nucleat RBC Rel Count Absolute Neuts (auto) Absolute Lymphs (auto) Absolute Monos (auto) Absolute Eos (auto) Absolute Basos (auto) Absolute Nucleated RBC Immature Gran % Immature Gran # PT 16.6 SEC H SEC (12.0-15.0) INR 1.32 H (0.83-1.16) APTT 42.7 SEC H SEC (23.0-38.0) Sodium 132 mEq/L L mEq/L (135-145) Potassium 4.2 mEq/L mEq/L (3.5-5.2) Chloride 97 mEq/L mEq/L (97-110) Carbon Dioxide 19 mEq/l L mEq/l (22-31) Anion Gap 16 mEq/L mEq/L (8-16) BUN 14 mg/dL mg/dL (7-23) Creatinine 0.9 mg/dL mg/dL (0.6-1.0) Estimated GFR 60 Glucose 162 mg/dL H mg/dL (70-100) Calcium 9.5 mg/dL mg/dL (8.5-10.4) Troponin I < 0.012 ng/mL ng/mL (0.000-0.034) Ethyl Alcohol 211 mg/dL H mg/dL (0-10) 10/25/17 19:30 WBC 7.76 10^3/uL 10^3/uL (3.80-9.50) RBC 4.36 10^6/uL 10^6/uL (4.18-5.33) Hgb 13.7 g/dL g/dL (12.6-16.3) Hct 39.4 % % (38.0-47.0) MCV 90.4 fL fL (81.5-99.8) MCH 31.4 pg pg (27.9-34.1) MCHC 34.8 g/dL g/dL (32.4-36.7) RDW 13.8 % % (11.5-15.2) Plt Count 275 10^3/uL 10^3/uL (150-400) MPV 9.6 fL fL (8.7-11.7) Neut % (Auto) 51.3 % % (39.3-74.2) Lymph % (Auto) 29.6 % % (15.0-45.0) [place] % (Auto) 15.1 % H % (4.5-13.0) Eos % (Auto) 2.8 % % (0.6-7.6) Baso % (Auto) 0.9 % % (0.3-1.7) Nucleat RBC Rel Count 0.0 % % (0.0-0.2) Absolute Neuts (auto) 3.98 10^3/uL 10^3/uL (1.70-6.50) Absolute Lymphs (auto) 2.30 10^3/uL 10^3/uL (1.00-3.00) Absolute Monos (auto) 1.17 10^3/uL H 10^3/uL (0.30-0.80) Absolute Eos (auto) 0.22 10^3/uL 10^3/uL (0.03-0.40) Absolute Basos (auto) 0.07 10^3/uL 10^3/uL (0.02-0.10) Absolute Nucleated RBC 0.00 10^3/uL 10^3/uL (0-0.01) Immature Gran % 0.3 % % (0.0-1.1) Immature Gran # 0.02 10^3/uL 10^3/uL (0.00-0.10) PT INR APTT Sodium Potassium Chloride Carbon Dioxide Anion Gap BUN Creatinine Estimated GFR Glucose Calcium Troponin I Ethyl Alcohol Departure - Departure Disposition: Home, Routine, Self-Care Clinical Impression: UNWITNESSED FALL, Chronic anticoagulation Alcohol intoxication Qualifiers: Complication of substance-induced condition: uncomplicated Qualified Code(s): F10.920 - Alcohol use, unspecified with intoxication, uncomplicated Cervical spondylosis Qualifiers: 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 Fall precautions. Take Tylenol 650 mg every 4 hours as needed for pain. Apply ice for 30 minutes at a time; 2-3 times per day for the next 1-2 days. If at any time you have worsening symptoms, return to the emergency room immediately. The images obtained in the emergency department today demonstrate no evidence of an obvious fracture or intracranial bleed. Referrals: PCP Not In,Dictionary [Medical Doctor] - As per Instructions
[2017-10-25 19:51] LABS: INR 1.32 (0.83-1.16); PROTIME(PATIENT) 16.6 SEC (12.0-15.0)
[2017-10-25 21:38] VITALS: RESP 17
[2017-10-25 22:24] VITALS: BP 152/69; PULSE 73; O2SAT 98
== END 2017-10-25 22:22 | disposition home or self-care (01) ==
LOC: EDUNIT#
DX: F10.920 Alcohol use, unspecified with intoxication, uncomplicated (principal); M47.812 Spondylosis without myelopathy or radiculopathy, cervical region; S22.010S Wedge compression fracture of first thoracic vertebra, sequela; E11.9 Type 2 diabetes mellitus without complications; I10 Essential (primary) hypertension; Z79.01 Long term (current) use of anticoagulants; Z95.0 Presence of cardiac pacemaker; Z95.1 Presence of aortocoronary bypass graft; Z79.82 Long term (current) use of aspirin; Z79.4 Long term (current) use of insulin; W01.0XXA Fall on same level from slipping, tripping and stumbling without subsequent striking against object, initial encounter
CPT/HCPCS: G0480

== ENCOUNTER 2019-02-13 17:23 | Inpatient (IN) | payer OTHER, MEDICARE ==
[2019-02-13] MEDS ORDERED: NS 250 ML IV ONE (17:29)
[2019-02-13 17:39] LABS: PLATELET COUNT 338 10^3/uL (150-400)
[2019-02-13 17:47] LABS: INR 1.54 (0.83-1.16); PROTIME(PATIENT) 17.8 SEC (12.0-15.0)
--- NOTE | 2019-02-13 17:57 | EDPHY ---
H & P Time Seen by Provider: 02/13/19 17:55 HPI/ROS: CHIEF COMPLAINT: Coughing up blood HISTORY OF PRESENT ILLNESS: The patient is an 83-year-old female presents emergency department after an episode of coughing up bright red blood. Patient states she has been in normal state of health. This morning she coughed up a handful of bright red blood. She has felt mildly short of breath. She has had no recent illness. Patient denies any chest pain. No abdominal pain. No nausea or vomiting. The patient has no change in her stool. No rectal bleeding. No fevers or chills. Patient cannot recall if she is on blood thinners. EMS reports the patient a low blood glucose in the field but was alert and interactive. They gave her oral glucose with no change in her mental status. REVIEW OF SYSTEMS: 10 systems were reveiwed and are negative with the exception of the elements mentioned in the history of present illness. Past Medical/Surgical History: Includes diabetes, atrial fibrillation, ACS, TIA, elevated liver enzymes, hypertension, thyroid disease Past surgical history: Includes pacemaker Smoking Status: Never smoked Physical Exam: Vitals noted GENERAL: Well-appearing, in no acute distress, alert. HEENT: Eyes normal to inspection, normal pharynx, no signs of dehydration. NECK: Normal, supple. RESPIRATORY: Clear to auscultation bilaterally, no rales, rhonchi or wheezing. Chest wall: Patient has a scar on her right anterior chest as well as a pacemaker scar on her left anterior chest CVS: Regular rate and rhythm, no rubs, murmurs, or gallops. ABDOMEN: Soft, nontender, nondistended, no organomegaly. BACK: Normal to inspection, no CVA tenderness. SKIN: Normal color, no rash, warm, dry. No pallor. EXTREMITIES: No pedal edema, no calf tenderness, no Homans sign or cords, no joint swelling. NEURO/PSYCH: Alert and oriented, normal mood and affect, normal motor sensory exam. No obvious cranial nerve deficit. Constitutional: Initial Vital Signs Temperature (C) 36.6 C 02/13/19 17:32 Heart Rate 78 02/13/19 17:32 Respiratory Rate 14 02/13/19 17:32 Blood Pressure 167/90 H 02/13/19 17:32 O2 Sat (%) 97 02/13/19 17:32 O2 Delivery Mode Room Air Allergies/Adverse Reactions: Tetanus Vaccines and Toxoid [Tetanus] Allergy (Severe, Verified 02/13/19 17:37) Hives codeine [Codeine] Allergy (Mild, Verified 02/13/19 17:37) Vomiting Home Medications: Medication Instructions Recorded Aspirin [Aspirin 81mg (*)] 81 mg PO DAILY 04/16/13 Furosemide [Lasix 20 MG (*)] 40 mg PO DAILY 04/16/13 Insulin Glargine [Lantus 100 22 units SC DAILY@08 04/16/13 UNITS/ML] Insulin Lispro [humALOG LISPRO 100 5 - 8 unit SC TIDMEAL 04/16/13 units/ml (*)] Nitroglycerin [Nitrostat 0.4 mg 0.4 mg SL DAILY PRN 04/16/13 (*)] Ranolazine [Ranexa] 500 mg PO BID 04/16/13 Simvastatin [Zocor 10 mg] 10 mg PO HS 04/25/13 Diltiazem Cd [Cardizem ER 120 MG 240 mg PO DAILY@05/29/13 (*)] Diltiazem Cd [Cardizem ER 120 MG 120 mg PO HS 03/06/17 (*)] Docusate Sodium [Colace 100 MG (*)] 100 mg PO DAILY PRN 03/06/17 Herbals/Supplements -Info Only 1 ea PO DAILY 03/06/17 Lisinopril [Zestril 10 mg (*)] 10 mg PO DAILY 03/06/17 Omeprazole [Prilosec 20 mg] 20 mg PO DAILY 03/06/17 Acetaminophen [Tylenol 325mg (*)] 650 mg PO Q6 PRN #0 tab 03/10/17 Calcium Carbonate [Tums 500MG (*)] 500 mg PO DAILY 02/13/19 Furosemide [Lasix 20 MG (*)] 20 mg PO DAILY@14 PRN 02/13/19 Insulin Glargine [Lantus 100 2 units SC HS 02/13/19 UNITS/ML] Ranitidine HCl 150 mg PO BID PRN 02/13/19 Rivaroxaban [Xarelto] 20 mg PO HS 02/13/19 Simethicone [Gas-X] 62.5 mg PO Q4H PRN 02/13/19 Medical Decision Making - Diagnostics Imaging Results: Imaging Impressions Chest/Thorax CTA 02/13/19 17:58 Impression: 1. There is no CT evidence of pulmonary artery thromboemboli. 2. Sequela of prior median sternotomy and CABG, with stable positioning of pacemaker wires. 3. Mild cardiomegaly without congestive heart failure. 4. Bibasilar subsegmental atelectasis and/or scar. A mild infiltrate in the left lower lobe is not excluded. 5. Status post cholecystectomy mild intrahepatic bile duct dilatation, less conspicuous than in 2012. 6. Small hiatal hernia. Findings were discussed with BETTY FIGUEROA MD at 18:44, on 02/13/2019. ED Course/Re-evaluation: In the emergency department I met EMS on arrival. I took report from the tracer lathe set up operator. I discussed the plan with the patient. I answered all her questions. EKG: Sinus rhythm at 75. Normal axis. Right bundle branch block. No ST or T- wave abnormality. Patient's white count is elevated 16,000. Hematocrit is low at 32. INR is elevated at 1.54. Patient's troponin is 0.02 The discussed case with the hospital pharmacist. She determined the patient is currently prescribed Xarelto and not Pradaxa. Patient's laboratory studies were notable for low sodium 131. I compared this with previous values. She previously has had hyponatremia in the past. CT angiogram chest: Please refer the dictated report by Dr. Wallace. No PE or other significant abnormality noted that would explain hemoptysis. I discussed case with Dr. Ceron from the hospitalist service. He will admit the patient. Discussed the plan with the patient answered all her questions. Of note, patient's glucose was low. However, this was from blood in the field. The tracer lathe set up operator reported that the patient had low blood sugar in gave oral glucose prior to arrival. Patient was given food in the emergency department. Differential Diagnosis: My differential includes but is not limited to bronchitis, pneumonia, pulmonary embolus, valvular disease, coagulopathy, anemia - Data Points Laboratory Results: Laboratory Results 02/13/19 17:30 02/13/19 17:30 02/13/19 02/13/19 02/13/19 18:45 17:33 17:30 WBC RBC Hgb Hct MCV MCH MCHC RDW Plt Count MPV Neut % (Auto) Lymph % (Auto) [place] % (Auto) Eos % (Auto) Baso % (Auto) Nucleat RBC Rel Count Absolute Neuts (auto) Absolute Lymphs (auto) Absolute Monos (auto) Absolute Eos (auto) Absolute Basos (auto) Absolute Nucleated RBC Immature Gran % Seg Neutrophils % Band Neutrophils % Lymphocytes % Monocytes % Eosinophils % Basophils % Metamyelocytes % Myelocytes % Promyelocytes % Blast Cells % Immature Gran # Absolute Seg Neuts Absolute Band Neuts Absolute Lymphocytes Absolute Monocytes Absolute Eosinophils Absolute Basophils Absolute Metamyelocyte Absolute Myelocytes Absolute Promyelocytes Absolute Plasma Cells Nucleated RBCs Absolute Blast Cells Plasma Cells % Platelet Estimate Polychromasia Hypochromasia Microcytic Cells Oval Macrocytes Echinocytes PT INR APTT D-Dimer Sodium 131 mEq/L L mEq/L (135-145) Potassium 4.0 mEq/L mEq/L (3.5-5.2) Chloride 96 mEq/L L mEq/L (97-110) Carbon Dioxide 22 mEq/l mEq/l (22-31) Anion Gap 13 mEq/L mEq/L (6-14) BUN 17 mg/dL mg/dL (7-23) Creatinine 0.9 mg/dL mg/dL (0.6-1.0) Estimated GFR 60 Glucose 32 mg/dL L* mg/dL (70-100) POC Glucose 72 mg/dL mg/dL (70-100) Calcium 9.3 mg/dL mg/dL (8.5-10.4) POC Troponin I 0.02 ng/mL ng/mL (0.00-0.08) NT-Pro-B Natriuret Pep 1140 pg/mL H pg/mL (0-450) 02/13/19 02/13/19 17:30 17:30 WBC 16.37 10^3/uL H 10^3/uL (3.80-9.50) RBC 3.69 10^6/uL L 10^6/uL (4.18-5.33) Hgb 10.9 g/dL L g/dL (12.6-16.3) Hct 32.6 % L % (38.0-47.0) MCV 88.3 fL fL (81.5-99.8) MCH 29.5 pg pg (27.9-34.1) MCHC 33.4 g/dL g/dL (32.4-36.7) RDW 13.4 % % (11.5-15.2) Plt Count 338 10^3/uL 10^3/uL (150-400) MPV 9.4 fL fL (8.7-11.7) Neut % (Auto) Not Reported Lymph % (Auto) Not Reported [place] % (Auto) Not Reported Eos % (Auto) Not Reported Baso % (Auto) Not Reported Nucleat RBC Rel Count Not Reported Absolute Neuts (auto) Not Reported Absolute Lymphs (auto) Not Reported Absolute Monos (auto) Not Reported Absolute Eos (auto) Not Reported Absolute Basos (auto) Not Reported Absolute Nucleated RBC Not Reported Immature Gran % Not Reported Seg Neutrophils % 81.0 % % Band Neutrophils % 0.0 % % Lymphocytes % 10.0 % % Monocytes % 7.0 % % Eosinophils % 2.0 % % Basophils % 0.0 % % Metamyelocytes % 0.0 % % Myelocytes % 0.0 % % Promyelocytes % 0.0 % % Blast Cells % 0.0 % % Immature Gran # Not Reported Absolute Seg Neuts 13.26 10^3/uL H 10^3/uL (1.70-6.50) Absolute Band Neuts 0.00 10^3/uL 10^3/uL (0.00-0.70) Absolute Lymphocytes 1.64 10^3/uL 10^3/uL (1.00-3.00) Absolute Monocytes 1.15 10^3/uL H 10^3/uL (0.30-0.80) Absolute Eosinophils 0.33 10^3/uL 10^3/uL (0.03-0.40) Absolute Basophils 0.00 10^3/uL L 10^3/uL (0.02-0.10) Absolute Metamyelocyte 0.00 10^3/mL 10^3/mL (0.00-0.00) Absolute Myelocytes 0.00 10^3/mL 10^3/mL (0.00-0.00) Absolute Promyelocytes 0.00 10^3/uL 10^3/uL (0.00-0.00) Absolute Plasma Cells 0.00 10^3/uL 10^3/uL (0.00-0.00) Nucleated RBCs 0 /100 WBC /100 WBC (0-0) Absolute Blast Cells 0.00 10^3/uL 10^3/uL (0.00-0.00) Plasma Cells % 0.0 % % Platelet Estimate ADEQUATE (ADEQ) Polychromasia 1+ H Hypochromasia 1+ H Microcytic Cells 1+ H Oval Macrocytes 1+ H Echinocytes 1+ H PT 17.8 SEC H SEC (12.0-15.0) INR 1.54 H (0.83-1.16) APTT 41.7 SEC H SEC (23.0-38.0) D-Dimer < 0.27 ug/mLFEU ug/mLFEU (0.00-0.50) Sodium Potassium Chloride Carbon Dioxide Anion Gap BUN Creatinine Estimated GFR Glucose POC Glucose Calcium POC Troponin I NT-Pro-B Natriuret Pep Medications Given: Discontinued Medications Sodium Chloride (Ns) 250 mls @ 1,000 mls/hr IV EDNOW ONE PRN Reason: Protocol Stop: 02/13/19 17:43 Last Admin: 02/13/19 17:47 Dose: 250 mls Point of Care Test Results: Chemistry 02/13/19 02/13/19 18:45 17:33 POC Glucose 72 mg/dL mg/dL (70-100) POC Troponin I 0.02 ng/mL ng/mL (0.00-0.08) Departure - Departure Disposition: [facility] Inpatient Acute Clinical Impression: Hemoptysis Condition: Good
[2019-02-13] MEDS ORDERED: IOPAMIDOL (ISOVUE 370) 100 ML BTL IV ONE (18:02)
[2019-02-13] MEDS ORDERED: DOCUSATE SODIUM 100 MG CAP PO PRN (19:00)
[2019-02-13] MEDS ORDERED: NITROGLYCERIN 0.4 MG BTL SL PRN (19:00)
[2019-02-13] MEDS ORDERED: ACETAMINOPHEN 325 MG TAB PO PRN (19:03)
[2019-02-13] MEDS ORDERED: ONDANSETRON 4 MG/2 ML VIAL IVP PRN (19:03)
[2019-02-13] MEDS ORDERED: ONDANSETRON DISINTEGRATING 4 MG TAB PO PRN (19:03)
--- NOTE | 2019-02-13 20:17 | PDGENHP ---
History and Physical - Chief Complaint Coughing up blood - History of Present Illness Mary Almanzar is a 83 yo F with a PMhx of A Fib on Xarelto, T2DM, CAD s/p CABG, HTN, Hypothyroidism who presents to [facility] for hemoptysis. She reports that she was coughing this morning and produced a handful of bright red blood. She reports that over the past week she has experienced a productive cough of yellow sputum with associated SOB. She reports mild sore throat, but denies rhinorrhea, f/c, mylagias. She reports she had one episode of hemoptysis 15 years ago that resolved on it's own with no further w/u performed. She denies chest pain, palpitations, edema, n/v, abdominal pain, d/c, hematochezia, melena , hematuria. History Information - Allergies/Home Medication List Allergies/Adverse Reactions: Tetanus Vaccines and Toxoid [Tetanus] Allergy (Severe, Verified 02/13/19 17:37) Hives codeine [Codeine] Allergy (Mild, Verified 02/13/19 17:37) Vomiting Home Medications: Aspirin [Aspirin 81mg (*)] 81 mg PO DAILY 04/16/13 [Last Taken 02/13/19] Furosemide [Lasix 20 MG (*)] 40 mg PO DAILY 04/16/13 [Last Taken 02/13/19] Insulin Glargine [Lantus 100 UNITS/ML] 22 units SC DAILY@04/16/13 [Last Taken 02/13/19] Insulin Lispro [humALOG LISPRO 100 units/ml (*)] 5 - 8 unit SC TIDMEAL 04/16/13 [Last Taken 05/28/13] Nitroglycerin [Nitrostat 0.4 mg (*)] 0.4 mg SL DAILY PRN 04/16/13 [Last Taken ] Ranolazine [Ranexa] 500 mg PO BID 04/16/13 [Last Taken 02/13/19] Simvastatin [Zocor 10 mg] 10 mg PO HS 04/25/13 [Last Taken 02/12/19] Diltiazem Cd [Cardizem ER 120 MG (*)] 240 mg PO DAILY@05/29/13 [Last Taken ] Diltiazem Cd [Cardizem ER 120 MG (*)] 120 mg PO HS 03/06/17 [Last Taken 02/12/19 ] Docusate Sodium [Colace 100 MG (*)] 100 mg PO DAILY PRN 03/06/17 [Last Taken ] Herbals/Supplements -Info Only 1 ea PO DAILY 03/06/17 [Last Taken Unknown] Lisinopril [Zestril 10 mg (*)] 10 mg PO DAILY 03/06/17 [Last Taken 02/13/19] Omeprazole [Prilosec 20 mg] 20 mg PO DAILY 03/06/17 [Last Taken 02/13/19] Calcium Carbonate [Tums 500MG (*)] 500 mg PO DAILY 02/13/19 [Last Taken 02/13/19 ] Furosemide [Lasix 20 MG (*)] 20 mg PO DAILY@14 PRN 02/13/19 [Last Taken Unknown] Insulin Glargine [Lantus 100 UNITS/ML] 2 units SC HS 02/13/19 [Last Taken ] Ranitidine HCl 150 mg PO BID PRN 02/13/19 [Last Taken Unknown] Rivaroxaban [Xarelto] 20 mg PO HS 02/13/19 [Last Taken 02/12/19] Simethicone [Gas-X] 62.5 mg PO Q4H PRN 02/13/19 [Last Taken Unknown] I have personally reviewed and updated: family history, medical history, social history, surgical history - Past Medical History atrial fibrillation, coronary artery disease, diabetes type 2, hypertension - Surgical History Reports: coronary bypass surgery - Family History Positive for: non-pertinent - Social History Smoking Status: Never smoked Review of Systems Review of Systems: ROS: 10pt was reviewed & negative except for what was stated in HPI & below Physical Exam Physical Exam: Temp Pulse Resp BP Pulse Ox 36.7 C 88 18 174/86 H 96 02/13/19 20:04 02/13/19 20:04 02/13/19 20:04 02/13/19 20:04 02/13/19 20:04 Constitutional: no apparent distress Eyes: PERRL Ears, Nose, Mouth, Throat: moist mucous membranes Cardiovascular: regular rate and rhythym, No edema Respiratory: no respiratory distress, reduced air movement Gastrointestinal: soft, non-tender abdomen Genitourinary: No carey in urethra Skin: warm Musculoskeletal: full muscle strength Neurologic: AAOx3 Psychiatric: interacting appropriately Lab Data & Imaging Review 02/13/19 17:30 02/13/19 17:30 WBC 16.37 10^3/uL (3.80-9.50) H 02/13/19 17:30 RBC 3.69 10^6/uL (4.18-5.33) L 02/13/19 17:30 Hgb 10.9 g/dL (12.6-16.3) L 02/13/19 17:30 Hct 32.6 % (38.0-47.0) L 02/13/19 17:30 MCV 88.3 fL (81.5-99.8) 02/13/19 17:30 MCH 29.5 pg (27.9-34.1) 02/13/19 17:30 MCHC 33.4 g/dL (32.4-36.7) 02/13/19 17:30 RDW 13.4 % (11.5-15.2) 02/13/19 17:30 Plt Count 338 10^3/uL (150-400) 02/13/19 17:30 MPV 9.4 fL (8.7-11.7) 02/13/19 17:30 Neut % (Auto) Not Reported 02/13/19 17:30 Lymph % (Auto) Not Reported 02/13/19 17:30 [place] % (Auto) Not Reported 02/13/19 17:30 Eos % (Auto) Not Reported 02/13/19 17:30 Baso % (Auto) Not Reported 02/13/19 17:30 Nucleat RBC Rel Count Not Reported 02/13/19 17:30 Absolute Neuts (auto) Not Reported 02/13/19 17:30 Absolute Lymphs (auto) Not Reported 02/13/19 17:30 Absolute Monos (auto) Not Reported 02/13/19 17:30 Absolute Eos (auto) Not Reported 02/13/19 17:30 Absolute Basos (auto) Not Reported 02/13/19 17:30 Absolute Nucleated RBC Not Reported 02/13/19 17:30 Immature Gran % Not Reported 02/13/19 17:30 Seg Neutrophils % 81.0 % 02/13/19 17:30 Band Neutrophils % 0.0 % 02/13/19 17:30 Lymphocytes % 10.0 % 02/13/19 17:30 Monocytes % 7.0 % 02/13/19 17:30 Eosinophils % 2.0 % 02/13/19 17:30 Basophils % 0.0 % 02/13/19 17:30 Metamyelocytes % 0.0 % 02/13/19 17:30 Myelocytes % 0.0 % 02/13/19 17:30 Promyelocytes % 0.0 % 02/13/19 17:30 Blast Cells % 0.0 % 02/13/19 17:30 Immature Gran # Not Reported 02/13/19 17:30 Absolute Seg Neuts 13.26 10^3/uL (1.70-6.50) H 02/13/19 17:30 Absolute Band Neuts 0.00 10^3/uL (0.00-0.70) 02/13/19 17:30 Absolute Lymphocytes 1.64 10^3/uL (1.00-3.00) 02/13/19 17:30 Absolute Monocytes 1.15 10^3/uL (0.30-0.80) H 02/13/19 17:30 Absolute Eosinophils 0.33 10^3/uL (0.03-0.40) 02/13/19 17:30 Absolute Basophils 0.00 10^3/uL (0.02-0.10) L 02/13/19 17:30 Absolute Metamyelocyte 0.00 10^3/mL (0.00-0.00) 02/13/19 17:30 Absolute Myelocytes 0.00 10^3/mL (0.00-0.00) 02/13/19 17:30 Absolute Promyelocytes 0.00 10^3/uL (0.00-0.00) 02/13/19 17:30 Absolute Plasma Cells 0.00 10^3/uL (0.00-0.00) 02/13/19 17:30 Nucleated RBCs 0 /100 WBC (0-0) 02/13/19 17:30 Absolute Blast Cells 0.00 10^3/uL (0.00-0.00) 02/13/19 17:30 Plasma Cells % 0.0 % 02/13/19 17:30 Platelet Estimate ADEQUATE (ADEQ) 02/13/19 17:30 Polychromasia 1+ H 02/13/19 17:30 Hypochromasia 1+ H 02/13/19 17:30 Microcytic Cells 1+ H 02/13/19 17:30 Oval Macrocytes 1+ H 02/13/19 17:30 Echinocytes 1+ H 02/13/19 17:30 PT 17.8 SEC (12.0-15.0) H 02/13/19 17:30 INR 1.54 (0.83-1.16) H 02/13/19 17:30 APTT 41.7 SEC (23.0-38.0) H 02/13/19 17:30 D-Dimer < 0.27 ug/mLFEU (0.00-0.50) 02/13/19 17:30 Sodium 131 mEq/L (135-145) L 02/13/19 17:30 Potassium 4.0 mEq/L (3.5-5.2) 02/13/19 17:30 Chloride 96 mEq/L (97-110) L 02/13/19 17:30 Carbon Dioxide 22 mEq/l (22-31) 02/13/19 17:30 Anion Gap 13 mEq/L (6-14) 02/13/19 17:30 BUN 17 mg/dL (7-23) 02/13/19 17:30 Creatinine 0.9 mg/dL (0.6-1.0) 02/13/19 17:30 Estimated GFR 60 02/13/19 17:30 Glucose 32 mg/dL (70-100) L* 02/13/19 17:30 POC Glucose 146 mg/dL (70-100) H 02/13/19 19:21 Calcium 9.3 mg/dL (8.5-10.4) 02/13/19 17:30 POC Troponin I 0.02 ng/mL (0.00-0.08) 02/13/19 17:33 NT-Pro-B Natriuret Pep 1140 pg/mL (0-450) H 02/13/19 17:30 Assessment & Plan Assessment: Hemoptysis (Acute) - 1 episode earlier today, in setting of cough that started ~1 week ago with production of yellow sputum - CTA Chest performed on admission which was negative for PE, showed bibasilar subsegmental atelectasis, mild infiltrate in LLL is not excluded - Unclear etiology at this time, possible PNA noted on CT, also on Xarelto for A Fib, will hold for now - Will initiate empiric abx ceftriaxone, azithromycin given CT findings and leukocytosis - Will also order Resp PCR given cough - Consider pulmonology consult in the AM for further evaluation, possible need for bronchoscopy if hemoptysis continues - Continue to monitor H/H Hypoglycemia - BG 32 on admission, improved to 140 with juice - Will decrease patients home Glargine from 22 units qAM to 12, continue 2 units qHS - Continue to monitor BG closely CAP - Possible mild infiltrate on CTA Chest on admission - Will initiate abx given leukocytosis and hemoptysis Hyponatremia - Na 131 on admission, appears chronic, continue to monitor A Fib - Appears in NSR on admission - Continue home Diltiazem - Holding home Xarelto in setting of hemoptysis as above T2DM - Management of hypoglycemia as above - Continue home glargine at decreased dose - Will order SSI while IP HTN - BP elevated to 160's on admission - Continue home Lisinopril CAD s/p CABG - Continue home ASA, Simvastatin FEN: Diabetic DVT PPx: Holding in setting of hemoptysis Code: FULL Dispo: Admit to Observation
[2019-02-13] MEDS ORDERED: AZITHROMYCIN IV 500 MG in NS 250 ML IV ONE (20:28)
[2019-02-13] MEDS ORDERED: D50W 25 GM/50 ML SYR IVP PRN (20:29)
[2019-02-13] MEDS ORDERED: SIMETHICONE 80 MG TAB CHEW PO PRN (20:45)
[2019-02-13] MEDS ORDERED: INSULIN GLARGINE 100 UNITS/ML UNIT SC SCH (21:00)
[2019-02-13] MEDS ORDERED: FAMOTIDINE 20 MG TAB PO PRN (21:00)
[2019-02-13] MEDS: PRAVASTATIN SODIUM 20 MG TAB PO SCH (21:39)
[2019-02-13] MEDS: DILTIAZEM CD 120 MG CAP PO SCH (21:39)
[2019-02-13] MEDS: RANOLAZINE 500 MG TAB.ER PO SCH (21:46)
--- NOTE | 2019-02-13 22:11 | CPEKG ---
Test Reason : OPEN Blood Pressure : / mmHG Vent. Rate : 075 BPM Atrial Rate : 076 BPM P-R Int : 173 ms QRS Dur : 130 ms QT Int : 434 ms P-R-T Axes : 062 038 024 degrees QTc Int : 485 ms Sinus rhythm Probable left atrial enlargement Right bundle branch block Confirmed by Rylie Vasquez ([id number]) on 02/13/2019 10:10:38 PM Referred By: Rylie Vasquez Confirmed By:Rylie Vasquez
[2019-02-14 05:02] LABS: PLATELET COUNT 335 10^3/uL (150-400)
[2019-02-14] MEDS: CALCIUM CARBONATE 500 MG CHEWABLE TAB PO SCH (07:40)
[2019-02-14] MEDS: DILTIAZEM CD 120 MG CAP PO SCH ×2 (07:41→21:08)
[2019-02-14] MEDS: PANTOPRAZOLE SODIUM 40 MG TAB PO SCH (07:41)
[2019-02-14] MEDS: LISINOPRIL 10 MG TAB PO SCH (07:42)
[2019-02-14] MEDS: ASPIRIN 81 MG CHEWABLE TAB PO SCH (07:42)
[2019-02-14] MEDS: FUROSEMIDE 20 MG TAB PO SCH (07:42)
[2019-02-14] MEDS: INSULIN GLARGINE 100 UNITS/ML UNIT SC SCH (07:42)
[2019-02-14] MEDS: RANOLAZINE 500 MG TAB.ER PO SCH ×2 (07:47→21:08)
[2019-02-14] MEDS: INSULIN LISPRO 100 UNIT/ML SC SCH ×3 (07:47→17:47)
[2019-02-14] MEDS ORDERED: Herbals/Supplements -Info Only PO SCH (09:00)
--- NOTE | 2019-02-14 11:22 | HOSPPROG ---
Hospitalist Progress Note Assessment/Plan: Patient is an 83-year-old female with a past medical history of atrial fibrillation on Xarelto, type 2 diabetes, hypertension, coronary artery disease with history of coronary artery bypass grafting who presented to the emergency room with hemoptysis. 1st encounter with the patient. Chart reviewed. * hemoptysis -hemoglobin hematocrit are low but have not decreased any further -has had no further issues -CTA of the chest which was negative for a PE showed basilar subsegmental atelectasis and mild infiltrate left lower lobe is not excluded *anemia -lower than her baseline -she has not noted blood in her stools * questionable pneumonia -was started on antibiotics -procalcitonin was low -wbc was elevated on admission and trending down now, no fever, hasn't felt ill * hypoglycemia with a history of diabetes -glucose on admission was 30 to improve with juice * hyponatremia -na improved * atrial fibrillation -rate controlled with diltiazem and is also on Xarelto * diabetes type 2 * hypertension * coronary artery disease -on aspirin and statin therapy *plan: Reviewed her care with Cardiology. She recently was there in October of 2018 had a pacer check had 1 brief episode of atrial fibrillation but otherwise has been in sinus rhythm. Their recommendation is to hold her Xarelto and get her labs monitored next week. Recommendation is continue to continue aspirin therapy unless actively bleeding. Subjective: Mary feels well, wants to go home Objective: Vital Signs Temp Pulse Resp BP Pulse Ox 36.8 C 80 16 182/68 H 96 02/14/19 07:15 02/14/19 07:41 02/14/19 07:15 02/14/19 07:42 02/14/19 07:15 Microbiology 02/13/19 21:45 Respiratory Panel (PCR) - Final Nasal, Sinus - Swab No Organism Detected By Pcr Laboratory Results 02/14/19 04:48 02/14/19 04:48 PT 17.8 SEC (12.0-15.0) H 02/13/19 17:30 INR 1.54 (0.83-1.16) H 02/13/19 17:30 - Physical Exam Constitutional: no apparent distress Eyes: PERRL Ears, Nose, Mouth, Throat: hearing normal Cardiovascular: regular rate and rhythym, other (extra beats) Respiratory: no respiratory distress Skin: warm Neurologic: AAOx3 Psychiatric: interacting appropriately ICD10 Worksheet Patient Problems: Problems Problem Status Onset Hemoptysis Acute Chest pain Active History of - hypertension Active Insulin-treated [id number] diabetes mellitus Active Facial fracture Acute Facial laceration Acute Multiple skin tears Acute
--- NOTE | 2019-02-14 11:43 | ASMTCMCOM ---
CM Note CM Note Notes: Reviewed chart and met with pt, she is admitted for coughing up blood. Pt lives at the [facility], she has been cleared by PT/OT for home. Anticipate she will dc home when medically stable, CM available should her needs change. DC Plan: Independent Date Signed: 02/14/2019 11:41 AM Electronically Signed By:Karen Farooq RN
[2019-02-14] MEDS ORDERED: FUROSEMIDE 20 MG TAB PO PRN (14:00)
[2019-02-14] MEDS ORDERED: AZITHROMYCIN IV 250 MG in NS 250 ML IV SCH (21:00)
[2019-02-14] MEDS: PRAVASTATIN SODIUM 20 MG TAB PO SCH (21:08)
[2019-02-14] MEDS: AZITHROMYCIN 250 MG TAB PO SCH (22:14)
[2019-02-15 05:58] LABS: PLATELET COUNT 326 10^3/uL (150-400)
[2019-02-15] MEDS: INSULIN GLARGINE 100 UNITS/ML UNIT SC SCH (07:59)
[2019-02-15] MEDS: FUROSEMIDE 20 MG TAB PO SCH (08:00)
[2019-02-15] MEDS: INSULIN LISPRO 100 UNIT/ML SC SCH ×2 (08:00→11:28)
[2019-02-15] MEDS: ASPIRIN 81 MG CHEWABLE TAB PO SCH (08:01)
[2019-02-15] MEDS: LISINOPRIL 10 MG TAB PO SCH (08:01)
[2019-02-15] MEDS: AZITHROMYCIN 250 MG TAB PO SCH (08:01)
[2019-02-15] MEDS: RANOLAZINE 500 MG TAB.ER PO SCH (08:01)
[2019-02-15] MEDS: PANTOPRAZOLE SODIUM 40 MG TAB PO SCH (08:01)
[2019-02-15] MEDS: CALCIUM CARBONATE 500 MG CHEWABLE TAB PO SCH (08:02)
[2019-02-15] MEDS: DILTIAZEM CD 120 MG CAP PO SCH (08:02)
--- NOTE | 2019-02-15 09:37 | PDMN ---
Medical Necessity Medical necessity: Change to IP, as of 02/14/19, per TRACK REPAIRER & MCG [id number]; los >2 mn for ongoing management of questionable pneumonia w/confusion, hemoptysis & anemia; requiring further monitoring, IV abx, swallow eval & follow-up labs; comorbid advanced age, AFIB on AC, diabetes, CAD, CABG
[2019-02-15 11:04] VITALS: BP 167/76
--- NOTE | 2019-02-15 14:34 | CPEKG ---
Test Reason : OPEN Blood Pressure : / mmHG Vent. Rate : 081 BPM Atrial Rate : 082 BPM P-R Int : 189 ms QRS Dur : 126 ms QT Int : 428 ms P-R-T Axes : 008 047 004 degrees QTc Int : 497 ms Atrial-paced rhythm Right bundle branch block Confirmed by Reymundo Gordon ([id number]) on 02/15/2019 2:34:05 PM Referred By: Theo Ceron Confirmed By:Reymundo Gordon
--- NOTE | 2019-02-15 14:43 | CPEKG ---
Test Reason : OPEN Blood Pressure : / mmHG Vent. Rate : 094 BPM Atrial Rate : 132 BPM P-R Int : 049 ms QRS Dur : 126 ms QT Int : 386 ms P-R-T Axes : 000 064 026 degrees QTc Int : 483 ms Atrial fibrillation Right bundle branch block Confirmed by Reymundo Gordon ([id number] on 02/15/2019 2:43:32 PM Referred By: Theo Ceron Confirmed By:Reymundo Gordon
--- NOTE | 2019-02-15 21:38 | GDS ---
[f rep st] DISCHARGE SUMMARY DISCHARGE DIAGNOSES: 1. Hemoptysis. 2. Anemia. 3. Possible pneumonia. 4. Hypoglycemia. 5. Hyponatremia. 6. Atrial fibrillation. 7. Diabetes type 2. 8. Hypertension. 9. Coronary artery disease. STUDIES AND PROCEDURES DONE: CT angio of the chest. PHYSICAL EXAM: GENERAL: The patient is alert. VITAL SIGNS: Afebrile at 36.7, pulse is 80, respira tory rate is 20, blood pressure is 167/76. She is saturating 95% on room air. I have seen and evalu ated the patient on the day of discharge. HOSPITAL COURSE: The patient is an 83-year-old female who presented to the emergency room with compl aints of weakness. She was evaluated and diagnosed with: 1. Hemoptysis. Patient's hemoglobin and hematocrit have remained stable during this hospitalization . CT angio of the chest was negative for PE. The patient's hemoptysis has completely resolved. 2. Anemia. This does appear to be stable at the time of disposition, and it is recommended that she follow up in the outpatient setting with her primary care physician. 3. Questionable pneumonia. The patient is being treated with antibiotic therapy in the setting of p otential acute illness. 4. Hypoglycemia. This is stable. 5. Hyponatremia. This is improved. 6. Atrial fibrillation. She is rate controlled. Her Xarelto is on hold, and she will follow up wit h laboratory monitoring next week. 7. Diabetes mellitus type 2. This is stable. DISPOSITION: The patient will be discharged to return to [facility] where she normally resides. S he will follow up with Cardiology in the outpatient setting and also have her labs monitored to reini tiate her Xarelto therapy. She does not have any signs of active bleeding at the time of disposition . DISCHARGE MEDICATIONS: Please refer to EMR form. Changes to medications include addition of azithro mycin and Augmentin. I have discontinued the patient's Xarelto until further followup in the outpati ent setting. She will follow up with Cardiology in 1 week. I spent greater than 35 minutes in the care, coordination, and management of the patient's disposdedeo n. /[id number]/MODL
== END 2019-02-15 15:30 | disposition home or self-care (01) | DRG 204 ==
LOC: EDUNIT# → F3E 19:53 → OBSVTOIN 02-14 15:21
PROVIDERS: ADMIT Internal Medicine; ATTEND Internal Medicine
DX: R04.2 Hemoptysis (principal); E11.649 Type 2 diabetes mellitus with hypoglycemia without coma; E87.1 Hypo-osmolality and hyponatremia; I48.91 Unspecified atrial fibrillation; J18.9 Pneumonia, unspecified organism; I25.10 Atherosclerotic heart disease of native coronary artery without angina pectoris; I10 Essential (primary) hypertension; D64.9 Anemia, unspecified; E03.9 Hypothyroidism, unspecified; Z95.0 Presence of cardiac pacemaker; Z79.01 Long term (current) use of anticoagulants; Z95.1 Presence of aortocoronary bypass graft; Z86.73 Personal history of transient ischemic attack (TIA), and cerebral infarction without residual deficits
CPT/HCPCS: 84484-ER; 92610-GN; 97116-GP; 97161-GP; 97165-GO; G0378; J0456; J0696; J1815; Q9967

== ENCOUNTER 2019-03-02 19:30 | Emergency (ER) | payer OTHER, MEDICARE | END 2019-03-02 22:43 | disposition home or self-care (01) ==

== ENCOUNTER 2019-03-06 05:04 | Observation (INO) | payer OTHER, MEDICARE | END 2019-03-07 14:50 | disposition home or self-care (01) | LOC: F2W 08:09 ==